=== PATIENT | female | born 1985 | race Native Hawaiian/Other Pacific Islander ===

== ENCOUNTER 2019-03-19 07:11 | Emergency (ER) | payer BC ==
[2019-03-19] MEDS ORDERED: Sodium Chloride 0.9% 1,000 ML IV STA (07:52)
[2019-03-19 08:15] LABS: BASO % 0.4 % (0.0-2.0); EOS # 0.1 K/uL (0.0-0.7); EOS % 0.7 % (0.0-4.0); HEMOGLOBIN 14.1 g/dL (11.0-16.0); LYMPH # 2.6 K/uL (1.0-4.3); LYMPH % 20.5 % (20.0-40.0); MEAN CELL VOLUME 87.1 fL (81.0-99.0); MEAN CORPUSCULAR HEMOGLOBIN 29.3 pg (27.0-31.0); MEAN CORPUSCULAR HGB CONC 33.6 g/dL (33.0-37.0); MEAN PLATELET VOLUME 7.2 fL (7.2-11.7); MONO # 0.6 K/uL (0.0-0.8); MONO % 4.7 % (0.0-10.0); NEUT # 9.5 K/uL (1.8-7.0); NEUT % 73.7 % (50.0-75.0); RBC 4.83 Mil/uL (3.80-5.20); RED CELL DISTRIBUTION WIDTH 13.5 % (11.5-14.5); WHITE BLOOD COUNT 12.9 K/uL (4.8-10.8)
[2019-03-19 08:20] LABS: HCG,QUALITATIVE URINE POSITIVE (NEGATIVE)
[2019-03-19 08:24] LABS: SQUAMOUS EPITHIAL 2 /hpf (0-5); URINE BACTERIA OCC (<OCC); URINE BILIRUBIN NEGATIVE (NEGATIVE); URINE BLOOD NEGATIVE (NEGATIVE); URINE CLARITY Hazy (Clear); URINE COLOR Yellow (YELLOW); URINE GLUCOSE (UA) NORMAL (Normal); URINE LEUKOCYTE ESTERASE TRACE Leu/uL (Negative); URINE PROTEIN NEGATIVE (NEGATIVE); URINE UROBILINOGEN NORMAL mg/dL (0.2-1.0)
[2019-03-19 08:39] LABS: ALB/GLOB RATIO 1.3 (1.0-2.1); ALBUMIN 4.2 g/dL (3.5-5.0); ALT/SGPT 24 U/L (9-52); AST/SGOT 31 U/L (14-36); BLOOD UREA NITROGEN 6 mg/dL (7-17); CALCIUM 9.1 mg/dl (8.6-10.4); GFR NON-AFRICAN AMERICAN > 60
--- NOTE | 2019-03-19 08:40 | C.PDOC ---
History Of Present Illness 34 y/o female, currently ~9 weeks , presents to the ED complaining of some vaginal spotting, noticed this morning. Patient denies any abdominal or pelvic pain. She reports that 2 weeks ago she saw her OB and had ultrasound that was normal. Patient otherwise denies any nausea, vomiting, diarrhea, dysuria, fever, or URI complaints. Time Seen by Provider: 03/19/19 07:37 Chief Complaint (Nursing): Female Genitourinary History Per: Patient History/Exam Limitations: no limitations Onset/Duration Of Symptoms: Hrs Current Symptoms Are (Timing): Still Present Abnormal Vaginal Bleeding: Yes Past Medical History Reviewed: Historical Data, Nursing Documentation, Vital Signs Vital Signs: Last Vital Signs Temp 97.6 F 03/19/19 07:21 Pulse 91 H 03/19/19 07:21 Resp 17 03/19/19 07:21 BP 116/77 03/19/19 07:21 Pulse Ox 97 03/19/19 07:21 - Medical History PMH: No Chronic Diseases Surgical History: No Surg Hx Family History: States: No Known Family Hx - Social History Hx Tobacco Use: No Hx Alcohol Use: No Hx Substance Use: No - Immunization History Hx Tetanus Toxoid Vaccination: No Hx Influenza Vaccination: No Hx Pneumococcal Vaccination: No Review Of Systems Except As Marked, All Systems Reviewed And Found Negative. Constitutional: Negative for: Fever, Chills Gastrointestinal: Negative for: Nausea, Vomiting, Abdominal Pain, Diarrhea Genitourinary: Positive for: Vaginal Bleeding. Negative for: Dysuria, Frequency, Pelvic Pain Skin: Negative for: Rash Neurological: Negative for: Weakness, Headache Physical Exam - Physical Exam Appears: Non-toxic, No Acute Distress Skin: Warm, Dry, No Rash Head: Atraumatic, Normacephalic Eye(s): bilateral: Normal Inspection, PERRL, EOMI Oral Mucosa: Moist Neck: Normal ROM Chest: Symmetrical Cardiovascular: Rhythm Regular, No Murmur Respiratory: Normal Breath Sounds, No Accessory Muscle Use Gastrointestinal/Abdominal: Soft, No Tenderness, No Distention, No Guarding Extremity: Bilateral: Atraumatic, Normal Color And Temperature Neurological/Psych: Oriented x3, Normal Speech ED Course And Treatment - Laboratory Results Result Diagrams: 03/19/19 08:06 03/19/19 08:06 Lab Results: Urine Color Yellow (YELLOW) 03/19/19 08:06 Urine Clarity Hazy (Clear) 03/19/19 08:06 Urine pH 7.0 (5.0-8.0) 03/19/19 08:06 Ur Specific [place] 1.016 (1.003-1.030) 03/19/19 08:06 Urine Protein Negative mg/dL (NEGATIVE) 03/19/19 08:06 Urine Glucose (UA) Normal mg/dL (Normal) 03/19/19 08:06 Urine Ketones Negative mg/dL (NEGATIVE) 03/19/19 08:06 Urine Blood Negative (NEGATIVE) 03/19/19 08:06 Urine Nitrate Negative (NEGATIVE) 03/19/19 08:06 Urine Bilirubin Negative (NEGATIVE) 03/19/19 08:06 Urine Urobilinogen Normal mg/dL (0.2-1.0) 03/19/19 08:06 Ur Leukocyte Esterase Trace Lucina/uL (Negative) 03/19/19 08:06 Urine WBC (Auto) 1 /hpf (0-5) 03/19/19 08:06 Urine RBC (Auto) 1 /hpf (0-3) 03/19/19 08:06 Ur Squamous Epith Cells 2 /hpf (0-5) 03/19/19 08:06 Urine Bacteria Occ (<OCC) H 03/19/19 08:06 Urine HCG, Qual Positive (NEGATIVE) 03/19/19 08:06 Urine HCG, Qual Positive (NEGATIVE) 03/19/19 08:06 O2 Sat by Pulse Oximetry: 97 (RA) Pulse Ox Interpretation: Normal - CT Scan/US Pelvic US Other Rad Studies (CT/US): Read By Radiologist, Radiology Report Reviewed CT/US Interpretation: Accession No. : [id number]. Patient Name / ID : DAVID MORA / [id number]. Exam Date : 03/19/2019 08:26:37 ( Approved ). Study Comment : Sex / Age : F / 34Y. Creator : Priya Sheikh MD. Dictator : Priya Sheikh MD. Marble Polisher Hand : Chimney Sweeper : Priya Sheikh MD. Approver2 : Report Date : 03/19/2019 09:30:44. My Comment : . Date of service: 03/19/2019. PROCEDURE: OB Pelvic Ultrasound. HISTORY: vaginal bleeding, . LMP: Unknown. COMPARISON: None available. FINDINGS: UTERUS: Gestational sac: Single intrauterine gestation. Gestational sac diameter measures 3.67 cm corresponding to 8 weeks and 6 days of gestational age. Yolk sac is visualized. CRL measures 2.28 cm corresponding to 9 weeks and 0 day of gestational age. Heart rate: 165 bpm. age (Ultrasound estimated): 9 weeks and 0 day. Dionne-gestational hemorrhage: None. Date of delivery (Ultrasound estimated) : 10/22/2019. Uterus measures 10.9 x 6.8 x 9.5 cm. Normal in size and appearance. CERVIX: Measures 3.3 x 1.8 x 2.9 cm. Long and closed. No cervical abnormality seen. RIGHT OVARY: Measures 2.5 x 2.1 x 3.0 cm. No mass lesion. Normal flow. LEFT OVARY: Measures cm. No solid mass. Normal flow. FREE FLUID: None. OTHER FINDINGS: None. IMPRESSION: Single live intrauterine gestation with mean gestational age of 9 weeks and 0 day. The estimated date of delivery by ultrasound is 10/22/2019. Progress Note: Blood work and urine sent to the lab for analysis. Patient given 1L of IV fluids. Pending pelvic/transvaginal ultrasound. Labs reviewed, Beta-HCG is [id number]. UA shows occasional bacteria and trace leuks. US resulted, showing live IUP. Patient counseled regarding results and the importance of follow up. Disposition - Disposition Disposition: HOME/ ROUTINE Disposition Time: 10:09 Condition: STABLE Additional Instructions: Follow up with your OBGYN within 1-2 days. Return to ED if feel worse. Instructions: Threatened Miscarriage (DC) Forms: Work/School/Gym Excuse, [facility] ([place]) - Clinical Impression Clinical Impression: Vaginal bleeding affecting early - PA / SENIOR C DEVELOPER / Resident Statement MD/DO has reviewed & agrees with the documentation as recorded. - Scribe Statement The provider has reviewed the documentation as recorded by the Margy Matthew All medical record entries made by the Scribe were at my direction and personally dictated by me. I have reviewed the chart and agree that the record accurately reflects my personal performance of the history, physical exam, medical decision making, and the department course for this patient. I have also personally directed, reviewed, and agree with the discharge instructions and disposition.
--- NOTE | 2019-03-19 09:34 | US ---
Date of service: 03/19/2019 PROCEDURE: OB Pelvic Ultrasound HISTORY: vaginal bleeding, LMP: Unknown COMPARISON: None available. FINDINGS: UTERUS: Gestational sac: Single intrauterine gestation. Gestational sac diameter measures 3.67 cm corresponding to 8 weeks and 6 days of gestational age. Yolk sac is visualized. CRL measures 2.28 cm corresponding to 9 weeks and 0 day of gestational age. Heart rate: 165 bpm. age (Ultrasound estimated): 9 weeks and 0 day Dionne-gestational hemorrhage: None. Date of delivery (Ultrasound estimated) : 10/22/2019 Uterus measures 10.9 x 6.8 x 9.5 cm. Normal in size and appearance. CERVIX: Measures 3.3 x 1.8 x 2.9 cm. Long and closed. No cervical abnormality seen. RIGHT OVARY: Measures 2.5 x 2.1 x 3.0 cm. No mass lesion. Normal flow. LEFT OVARY: Measures cm. No solid mass. Normal flow. FREE FLUID: None. OTHER FINDINGS: None. IMPRESSION: Single live intrauterine gestation with mean gestational age of 9 weeks and 0 day. The estimated date of delivery by ultrasound is 10/22/2019.
[2019-03-19 10:04] VITALS: BP 96/62; PULSE 64; RESP 18; TEMP 98.3
[2019-03-19 10:12] VITALS: O2SAT 97
== END 2019-03-19 10:38 | disposition home or self-care (01) ==
LOC: C.ER 07:11
DX: O46.91 Antepartum hemorrhage, unspecified, first trimester (principal); Z3A.09 9 weeks gestation of pregnancy
CPT/HCPCS: 76801; 80053; 81001; 84702; 84703; 85025; 86850; 86900; 96360; 99284; J7030